=== PATIENT | male | born 1950 | race Caucasian/White ===

== ENCOUNTER 2020-06-19 10:18 | Day surgery (SDC) | payer MEDICARE ==
[~2020-06-19] VITALS: Ht 157.5 cm; Wt 108.0 kg
[~2020-06-19 10:18] MED LIST: ACET-1600 PO; ACETAMINOPHEN 650 MG/20.3 ML UDC PO PRN; APIX5TAB PO; ATOR40TA78 PO; BISACODYL 10 MG SUPP PR PRN; CEFAZOLIN 1,000 MG ONE; DIPHENHYDRAMINE 50 MG CAPSULE PO PRN; DOCUSATE 100 MG CAPSULE PO SCH; EPINEPHRINE 1 MG/ML, 1ML ONE; FENTANYL PF 250 MCG/5ML ONE; GLYCOPYRROLATE 0.2MG/1ML, 5ML ONE; HYDR25TA6 PO; HYDROCHLOROTHIAZIDE 25 MG TABLET PO SCH; HYDROcodone/APAP 5/325 TABLET PO PRN; INHALER INH; KETOROLAC 60 MG/2 ML ONE; LISI-170 PO; MAGNESIUM HYDROXIDE 8%, 30ML UDC PO PRN; MULT-516 PO; NEOSTIGMINE 1 MG/ML, 10ML ONE; NITR0.4T28 SL; NITROGLYCERIN SINGLE TAB 0.4 MG SL PRN; ONDANSETRON 2MG/ML, 2ML IV PRN; ONDANSETRON 4 MG TABLET PO PRN; OREG1500 PO; OXYcodone IR 5MG TABLET PO PRN; PROPOFOL 10 MG/ML, 20ML ONE; ROPIvacaine/PF 0.5%, 20 ML ONE; ROPIvacaine/PF 0.5%, 30 ML ONE; SENNA/DOCUSATE TABLET PO PRN; SODIUM CHLORIDE 0.9% 50 ML ONE; TRAM50TA2 PO; TRANEXAMIC ACID 100 MG/ML, 10ML ONE; VANCOMYCIN 1,000 MG ONE; ZOLPIDEM 5MG TABLET PO PRN
[2020-06-19] MEDS ORDERED: ACETAMINOPHEN 500 MG TABLET PO ONE (11:00)
[2020-06-19] MEDS ORDERED: CHLORHEXIDINE 15 ML UDC MM ONE (11:00)
[2020-06-19] MEDS ORDERED: GABAPENTIN 300 MG CAPSULE PO ONE (11:00)
[2020-06-19] MEDS ORDERED: LACTATED RINGERS 1,000 ML IV SCH (11:00)
[2020-06-19] MEDS ORDERED: LIDOCAINE-MPF 1%, 2ML INFIL ONE (11:00)
[2020-06-19] MEDS ORDERED: GABAPENTIN 300 MG CAPSULE ONE (11:29)
[2020-06-19] MEDS ORDERED: ACETAMINOPHEN 500 MG TABLET ONE (11:29)
[2020-06-19] MEDS ORDERED: HYDROmorphone 1 MG/ML, 1ML INJ IVPush PRN (11:30)
[2020-06-19] MEDS ORDERED: ACETAMINOPHEN 325 MG TABLET PO PRN (11:30)
[2020-06-19] MEDS ORDERED: ONDANSETRON 2MG/ML, 2ML IVPush PRN (11:30)
[2020-06-19] MEDS ORDERED: hydrALAzine 20 MG/ML, 1ML IV PRN (11:30)
[2020-06-19] MEDS ORDERED: morphine SULFATE 10 MG/ML, 1ML IVPush PRN (11:30)
[2020-06-19] MEDS ORDERED: LABETALOL 5MG/ML, 20ML IV PRN (11:30)
[2020-06-19] MEDS ORDERED: FENTANYL PF 100 MCG/2ML IV PRN (11:30)
[2020-06-19] MEDS ORDERED: MEPERIDINE/PF 25MG/0.5ML IVPush PRN (11:30)
[2020-06-19] MEDS ORDERED: CHLORHEXIDINE 15 ML UDC ONE (11:30)
[2020-06-19] MEDS ORDERED: ROCURONIUM 10 MG/ML,10ML ONE (11:49)
[2020-06-19] MEDS ORDERED: FENTANYL PF 250 MCG/5ML ONE (12:17)
[2020-06-19] MEDS ORDERED: HYDROmorphone 1 MG/ML, 1ML INJ ONE (13:09)
[2020-06-19] MEDS ORDERED: OXYcodone 5 MG/5 ML ORAL.SOL UDC ONE (13:09)
[2020-06-19] MEDS ORDERED: FENTANYL PF 100 MCG/2ML ONE (13:09)
[2020-06-19] MEDS: OXYcodone 5 MG/5 ML ORAL.SOL UDC PO PRN ×2 (13:18→13:28)
[2020-06-19] MEDS ORDERED: METOPROLOL 1 MG/ML, 5ML ONE (13:23)
[2020-06-19] MEDS: METOPROLOL 1 MG/ML, 5ML IV PRN ×2 (13:30→13:35)
[2020-06-19] MEDS ORDERED: DILTIAZEM 5 MG/ML, 5ML ONE (13:48)
[2020-06-19] MEDS ORDERED: DILTIAZEM 5 MG/ML, 5ML IVPush ONE (14:00)
[2020-06-19] MEDS ORDERED: METOPROLOL 1 MG/ML, 5ML IVPush ONE (14:00)
[2020-06-19 15:15] VITALS: BP 105/68
[2020-06-19] MEDS ORDERED: NS + 20MEQ KCL 1,000 ML IV SCH (16:28)
[2020-06-19] MEDS ORDERED: CEFAZOLIN PMX 2GM/50ML 50 ML IVPB SCH (17:00)
[2020-06-19] MEDS ORDERED: ASPIRIN 81 MG TABLET EC PO SCH (18:00)
[2020-06-19] MEDS ORDERED: LISINOPRIL 20 MG TABLET PO SCH (21:00)
[2020-06-19] MEDS ORDERED: ATORVASTATIN 40 MG TABLET PO SCH (21:00)
[2020-06-20] MEDS ORDERED: DEXAMETHASONE 4 MG/ML, 1ML IVPush SCH (06:00)
== END 2020-06-19 18:48 | disposition home or self-care (01) ==
LOC: OUT 10:18 → 4NW 16:27 → OUT 18:48
PROVIDERS: ATTEND Orthopaedic Surgery
DX: M16.0 Bilateral primary osteoarthritis of hip (principal); M25.752 Osteophyte, left hip; I10 Essential (primary) hypertension; I48.0 Paroxysmal atrial fibrillation; I25.10 Atherosclerotic heart disease of native coronary artery without angina pectoris; E78.5 Hyperlipidemia, unspecified; J44.9 Chronic obstructive pulmonary disease, unspecified; Z79.01 Long term (current) use of anticoagulants; Z79.1 Long term (current) use of non-steroidal anti-inflammatories (NSAID); Z79.891 Long term (current) use of opiate analgesic; Z79.899 Other long term (current) drug therapy; Z87.891 Personal history of nicotine dependence; Z95.5 Presence of coronary angioplasty implant and graft; Z98.890 Other specified postprocedural states; Z82.49 Family history of ischemic heart disease and other diseases of the circulatory system; Z82.3 Family history of stroke
CPT/HCPCS: 27130; 36415; 72170; 73501; 83036; 87081; 87635; 93005; 97161; C1713; C1776; J0171; J0690; J1885; J2704; J2710; J2795; J3010; J3370; J7120; 76000; G0378

== ENCOUNTER 2020-09-11 05:25 | Day surgery (SDC) | payer MEDICARE ==
[~2020-09-11] VITALS: Ht 157.5 cm; Wt 105.0 kg
[~2020-09-11 05:25] MED LIST changes: -ACETAMINOPHEN 650 MG/20.3 ML UDC PO PRN; +ASPI81TA45 PO; -BISACODYL 10 MG SUPP PR PRN; -CEFAZOLIN 1,000 MG ONE; -DIPHENHYDRAMINE 50 MG CAPSULE PO PRN; -DOCUSATE 100 MG CAPSULE PO SCH; -EPINEPHRINE 1 MG/ML, 1ML ONE; -FENTANYL PF 250 MCG/5ML ONE; -GLYCOPYRROLATE 0.2MG/1ML, 5ML ONE; -HYDROCHLOROTHIAZIDE 25 MG TABLET PO SCH; -HYDROcodone/APAP 5/325 TABLET PO PRN; -KETOROLAC 60 MG/2 ML ONE; -MAGNESIUM HYDROXIDE 8%, 30ML UDC PO PRN; -NEOSTIGMINE 1 MG/ML, 10ML ONE; -NITROGLYCERIN SINGLE TAB 0.4 MG SL PRN; +Nasal Spray NS; -ONDANSETRON 2MG/ML, 2ML IV PRN; -ONDANSETRON 4 MG TABLET PO PRN; -OXYcodone IR 5MG TABLET PO PRN; -PROPOFOL 10 MG/ML, 20ML ONE; -ROPIvacaine/PF 0.5%, 20 ML ONE; -ROPIvacaine/PF 0.5%, 30 ML ONE; -SENNA/DOCUSATE TABLET PO PRN; -SODIUM CHLORIDE 0.9% 50 ML ONE; -TRANEXAMIC ACID 100 MG/ML, 10ML ONE; -VANCOMYCIN 1,000 MG ONE; -ZOLPIDEM 5MG TABLET PO PRN
[2020-09-11 06:04] VITALS: BP 124/65
[2020-09-11] MEDS ORDERED: ROPIvacaine/PF 0.5%, 30 ML ONE (06:13)
[2020-09-11] MEDS ORDERED: VANCOMYCIN 1,000 MG ONE (06:13)
[2020-09-11] MEDS ORDERED: KETOROLAC 60 MG/2 ML ONE (06:13)
[2020-09-11] MEDS ORDERED: EPINEPHRINE 1 MG/ML, 1ML ONE (06:13)
[2020-09-11] MEDS ORDERED: TRANEXAMIC ACID 100 MG/ML, 10ML ONE ×2 (06:13)
[2020-09-11] MEDS ORDERED: ROPIvacaine/PF 0.2%, 20 ML ONE (06:13)
[2020-09-11] MEDS ORDERED: SODIUM CHLORIDE 0.9% 50 ML ONE (06:13)
[2020-09-11] MEDS ORDERED: LACTATED RINGERS 1,000 ML IV SCH (06:30)
[2020-09-11] MEDS ORDERED: GABAPENTIN 300 MG CAPSULE PO ONE (06:30)
[2020-09-11] MEDS ORDERED: CHLORHEXIDINE 15 ML UDC MM ONE (06:30)
[2020-09-11] MEDS ORDERED: ACETAMINOPHEN 500 MG TABLET PO ONE (06:30)
[2020-09-11] MEDS ORDERED: FENTANYL PF 250 MCG/5ML ONE (06:43)
[2020-09-11] MEDS ORDERED: SODIUM CHLORIDE 0.9% PF 10ML ONE (06:45)
[2020-09-11] MEDS ORDERED: LIDOCAINE-MPF 2% ,5ML ONE (06:45)
[2020-09-11] MEDS ORDERED: METO25TA35 PO (06:50)
[2020-09-11] MEDS ORDERED: SENNA/DOCUSATE TABLET PO PRN (07:00)
[2020-09-11] MEDS ORDERED: ONDANSETRON 2MG/ML, 2ML IV PRN (07:00)
[2020-09-11] MEDS ORDERED: EPHEDRINE 50 MG/ML, 1ML IVPush PRN (07:00)
[2020-09-11] MEDS ORDERED: DIPHENHYDRAMINE 50 MG CAPSULE PO PRN (07:00)
[2020-09-11] MEDS ORDERED: BISACODYL 10 MG SUPP PR PRN (07:00)
[2020-09-11] MEDS ORDERED: hydrALAzine 20 MG/ML, 1ML IV PRN (07:00)
[2020-09-11] MEDS ORDERED: FENTANYL PF 100 MCG/2ML IV PRN (07:00)
[2020-09-11] MEDS ORDERED: MAGNESIUM HYDROXIDE 8%, 30ML UDC PO PRN (07:00)
[2020-09-11] MEDS ORDERED: LABETALOL 5MG/ML, 20ML IV PRN (07:00)
[2020-09-11] MEDS ORDERED: NITROGLYCERIN SINGLE TAB 0.4 MG SL PRN (07:00)
[2020-09-11] MEDS ORDERED: NS + 20MEQ KCL 1,000 ML IV SCH (07:00)
[2020-09-11] MEDS ORDERED: ZOLPIDEM 5MG TABLET PO PRN (07:00)
[2020-09-11] MEDS ORDERED: ONDANSETRON 4 MG TABLET PO PRN (07:00)
[2020-09-11] MEDS ORDERED: HYDROcodone/APAP 5/325 TABLET PO PRN (07:00)
[2020-09-11] MEDS ORDERED: ONDANSETRON 2MG/ML, 2ML IVPush PRN (07:00)
[2020-09-11] MEDS ORDERED: OXYcodone IR 5MG TABLET PO PRN (07:00)
[2020-09-11] MEDS ORDERED: PROMETHAZINE 25 MG/ML, 1ML IVPush PRN (07:00)
[2020-09-11] MEDS ORDERED: CEFAZOLIN PMX 2GM/50ML 50 ML IVPB SCH (07:00)
[2020-09-11] MEDS ORDERED: OXYcodone 5 MG/5 ML ORAL.SOL UDC PO PRN (07:00)
[2020-09-11] MEDS ORDERED: HYDROmorphone 1 MG/ML, 1ML INJ IVPush PRN (07:00)
[2020-09-11] MEDS ORDERED: ACETAMINOPHEN 650 MG/20.3 ML UDC PO PRN (07:00)
[2020-09-11] MEDS ORDERED: EPHEDRINE 50 MG/ML, 1ML ONE (07:16)
[2020-09-11] MEDS ORDERED: ONDANSETRON 2MG/ML, 2ML ONE (07:17)
[2020-09-11] MEDS ORDERED: DEXAMETHASONE 4 MG/ML, 1ML ONE (07:17)
[2020-09-11] MEDS ORDERED: SUCCINYLCHOLINE 20 MG/ML, 10ML ONE (07:17)
[2020-09-11] MEDS ORDERED: CEFAZOLIN 1,000 MG ONE (07:17)
[2020-09-11] MEDS ORDERED: PROPOFOL 10 MG/ML, 20ML ONE (07:17)
[2020-09-11] MEDS ORDERED: DOCUSATE 100 MG CAPSULE PO SCH (09:00)
[2020-09-11] MEDS ORDERED: HYDROCHLOROTHIAZIDE 25 MG TABLET PO SCH (09:00)
[2020-09-11] MEDS ORDERED: ASPIRIN 81 MG TABLET EC PO SCH (18:00)
[2020-09-11] MEDS ORDERED: LISINOPRIL 20 MG TABLET PO SCH (21:00)
[2020-09-12] MEDS ORDERED: DEXAMETHASONE 4 MG/ML, 1ML IVPush SCH (06:00)
== END 2020-09-11 12:20 | disposition home or self-care (01) ==
LOC: OUT 05:25
PROVIDERS: ATTEND Orthopaedic Surgery
DX: M16.0 Bilateral primary osteoarthritis of hip (principal); M25.751 Osteophyte, right hip; J44.9 Chronic obstructive pulmonary disease, unspecified; I10 Essential (primary) hypertension; I25.10 Atherosclerotic heart disease of native coronary artery without angina pectoris; I48.91 Unspecified atrial fibrillation; Z79.01 Long term (current) use of anticoagulants; Z79.891 Long term (current) use of opiate analgesic; Z79.899 Other long term (current) drug therapy; Z87.891 Personal history of nicotine dependence; Z98.890 Other specified postprocedural states; Z82.3 Family history of stroke; Z82.49 Family history of ischemic heart disease and other diseases of the circulatory system
CPT/HCPCS: 27130; 72170; 73501; 97110; 97161; 97165; 97535; C1713; C1776; J0171; J0330; J0690; J1100; J1885; J2405; J2704; J2795; J3010; J3370; J7120; 76000